=== PATIENT | female | born 1970 | race Caucasian/White ===

== ENCOUNTER 2023-06-20 14:59 | Outpatient (AMB) | payer BC, SELFPAY ==
--- NOTE | 2023-06-20 15:00 | A.OFFVIS_ITS ---
Intake Vital Signs 06/20/23 15:01 Height 5 ft 4 in Weight 117 lb 4 oz BMI 20.1 BP 114/78 Blood Pressure Location Rt brachial Position Sitting Intake Visit Reasons: NPV: Migraines-LVM Intake Note: Patient presents for migraines. patient states right now I have a good stretch, i get an ache in my ears and comes from the back of my neck with nausea. Allergies No Known Allergies Allergy (Verified 06/20/23 15:04) Medication List - Last Reconciled 06/20/23 by GERI Carpio biotin 5 mg PO DAILY fluticasone furoate 50 mcg/actuation inhalation galcanezumab-gnlm (Emgality) mg subcut levothyroxine (Levoxyl) 100 mcg PO DAILY loratadine (Allergy Relief (loratadine)) 10 mg PO DAILY ubrogepant (Ubrelvy) 100 mg PO DAILY HPI HPI Comments History of Present Illness Details 53-yr-old female presents for new pt nery luation of headache disorder. PMH and ROS: hypotyroidism, palpitation, sleep difficulties, back and neck pain. Pt reports that she has had headache for many years, which had been progressing in severity and duration but did not realize that she was having migraine until she had seen Dr Gannon (saw once prior to Dr reyes). She has been tracking her headaches and migraines since Aug 2022- and now believes she has a seasonal pattern to her migarine attacks- worse after Nov, better in the summer. Typical headache characteristics: Prodrome symptoms? None Aura? None Location, quality, characteristics? Starts with nick ear ache, then an aching pain moves up the back of her head and into her upper/lower teeth. Pain intensity? Intensity varies- mild-severe. Associated symptoms? Nausea, some photphobia, at times phonophobia, fatigue, Focal weakness, Parethesias, Autonomic s/s? None Postdrome? May feel drained Triggers? Alcohol- wine, stress. Any positional, valsalva, exertional, sexual activity triggers? Unsure- thought maybe there was some delayed headache after doing strength training. Menstrual triggers? Has an IUD- believes she is perimenopausal. Time of day? Varies Duration? In the past 3 days. Now Frequency? Has an almost daily low level headache, 4 migraine days per month (with taking Ubrelvy) during better migraine cycle, during worse cycle- 8 migraine days per month. How does headache impact your life? Tries not to miss work- may attend a meeting remotely. Current acute medication use/interventions: Ubrelvy 100mg- effective- tends to wait to take the ubrelvy (usually takes on 2nd day of migraine). Previous acute medication use: Sumatriptan- not tolerated- caused severe jaw pain. Current preventative medication use: None Previous preventative medication use: Mag- caused GI upset. Propranolol- ? ineffective. Previously received Emgality but never used it. Non-pharmacological interventions: Rest. Does not tolerate the cold. [facility] Medical History (Updated 06/21/23 @ 20:33 by GERI Carpio) Hypothyroidism Surgical History (Updated 06/20/23 @ 15:05 by JUAN Alvarenga) History of removal of skin mole [place] teeth removed Family History Mother Depression Thyroid disease Daughter Autism Social History Alcohol intake: current Patient Tobacco Use Status: Former Tobacco user Review of Systems Const Details: See scanned ROS form Physical Exam Vital Signs: Last Vital Signs BP 114/78 06/20/23 15:01 BMI result Body Mass Index 20.1 Const Orientation/consciousness: patient oriented x3 HEENT Other: No palpable scalp tenderness. Head: Yes normocephalic Resp Effort & Inspection: normal respiratory effort and able to speak in complete s entences Neuro General: patient oriented x3 Cranial nerves: Yes CN's II-XII intact bilaterally Cognition (Neuro): normal cognition Gait exam (Neuro): Normal gait present Motor exam (neuro): 5/5 motor strength present throughout Deep tendon reflexes (DTR's): Right triceps reflex intensity grade: 2+, Left triceps reflex intensity grade: 2+, Rt Biceps (C5, C6): 2+, Left biceps reflex intensity grade: 2+, Right brachioradialis reflex intensity grade: 2+, Left brachioradialis reflex intensity grade: 2+, Right patellar reflex intensity grade: 2+ and Left patellar reflex intensity grade: 2+ Coordination: [id number] test normal, tandem gait normal and Romberg test negative Pupils: Normal pupillary reactivity/response: bilateral Psych Appearance: grossly normal Mental Status: mental status grossly normal Speech and movement: Normal speech and movement present Affect: normal affect Attitude: cooperative Thought process: Normal thought process present Assessment & Plan Assessment & Plan (1) Migraine without aura: Code(s): G43.009 - Migraine without aura, not intractable, without status migrainosus (2) Sleep difficulties: Code(s): G47.9 - Sleep disorder, unspecified Plan For overall headache management: Discussed importance of good self-care, including but not limited to maintaining a healthy diet, adequate fluid intake, adequate sleep, and engaging in regular physical activity. For headache triggers: Track headaches, especially after any treatment regimen changes. Migraine [employer] is one of many headache tracking apps. For sleep: Pt may benefit from reading/listening to Say [place]ina to Insomnia by Dr Farooq Little or similar CBTi resources. For acute headache treatment: Discussed importance of taking acute medications at the first sign of headache. Continue Ubrelvy 100mg prn, MR ilda's 1 Previous acute migraine medication trials: Sumatriptan- severe jaw pain Acute migraine medication contraindications: Triptans d/t severe jaw pain reaction to sumatriptan. For headache prevention medication: Discussed that preventative medications should be taken routinely as prescribed for best effect, it may take several weeks for full effect to take effect. Start Riboflavin 400mg qam Start Magnesium 400mg qhs- may hold for loose stools. Or alternately she can try OTC Migralief. Previous migraine prevention medication trials: Propranolol- ineffective after > 12 weeks. Migraine prevention medication contraindications: Information also given on non-pharmacological interventions, such as Cefaly or Nerivio neuromodulation devices. Pt to follow-up in 3-4 months or sooner prn. Medications: New ubrogepant (Ubrelvy) take at onset of migraine, may repeat in 2hrs (may take w/ Ibuprofen) 50 - 100 mg (0.5 - 1 x 100 mg) PO ONCE 30 days PRN 10 tabs 3RF migraine headache Coding Level of Care Code New Pt Level 4 (29950) Diagnoses Migraine without aura G43.009 Sleep difficulties G47.9
[2023-06-20 15:01] VITALS: BP 114/78; BMI 20.1
== END 2023-06-20 16:13 | disposition home or self-care (01) ==
PROVIDERS: PCP Internal Medicine; Visit Provider Nurse Practitioner Family
DX: G43.009 Migraine without aura, not intractable, without status migrainosus (principal); G47.9 Sleep disorder, unspecified
CPT/HCPCS: 99204

== ENCOUNTER → 2023-06-20 14:59 | Outpatient (BNVA) | payer BC, SELFPAY | PROVIDERS: PCP Internal Medicine; Visit Provider Nurse Practitioner Family ==

== ENCOUNTER 2024-01-10 09:24 | Outpatient (AMB) | payer BC, SELFPAY ==
--- NOTE | 2024-01-10 09:48 | A.OFFVIS_ITS ---
Vital Signs 01/10/24 09:49 Height 5 ft 4 in Weight 115 lb BMI 19.7 BP 108/78 Blood Pressure Location Rt brachial Position Sitting Pulse 64 Pulse Source Pulse Oximeter Pulse Oximetry (%) 96 Oxygen Delivery Method Room Air Intake Visit Reasons: 4 mo f/u Migraines-LVM Intake Note: Patient presents for migraines. Patient states headaches are about the same no changess Allergies No Known Allergies Allergy (Verified 01/10/24 09:49) Medication List - Last Reconciled 01/10/24 by GERI Carpio biotin 5 mg PO DAILY fluticasone furoate 50 mcg/actuation inhalation galcanezumab-gnlm (Emgality) mg subcut levothyroxine (Levoxyl) 100 mcg PO DAILY loratadine (Allergy Relief (loratadine)) 10 mg PO DAILY ubrogepant (Ubrelvy) 50 - 100 mg (0.5 - 1 x 100 mg) PO ONCE PRN 30 days HPI Comments Details: 53-yr-old female presents for f/u visit. Pt denies any significant interval medical changes. Pt is having 3 breakthrough migraine days per month. Ubrelvy helps, trying to better at taking Ubrelvy at the 1st sign. She still has poor sleep- uses an OTC sleep aide, but prone to wake up at 3am and have difficulty going back to sleep. Tries to manage her triggers. Notes her headaches are usually worse in the winter. She uses Migrelief. Baseline headache characteristics: Intensity varies- mild-severe., Starts with nick ear ache, then an aching pain moves up the back of her head and into her upper/lower teeth a/w nausea, some photophobia, at times phonophobia, fatigue. [facility] Medical History (Updated 06/21/23 @ 20:33 by GERI Carpio) Hypothyroidism Surgical History (Updated 06/20/23 @ 15:05 by JUAN Alvarenga) History of removal of skin mole [place] teeth removed Family History Mother Depression Thyroid disease Daughter Autism Social History Alcohol intake: current Patient Tobacco Use Status: Former Tobacco user Physical Exam Vital Signs: Last Vital Signs Pulse 64 05/16/24 09:49 BP 108/78 01/10/24 09:49 Pulse Ox 96 01/10/24 09:49 Oxygen Delivery Method Room Air 01/10/24 09:49 BMI result Body Mass Index 19.7 Const General: cooperative and no acute distress Orientation/consciousness: patient oriented x3 Resp Effort & Inspection: normal respiratory effort and able to speak in complete sentences Neuro General: patient oriented x3 Cranial nerves: Yes CN's II-XII intact bilaterally Cognition (Neuro): normal cognition Psych Appearance: grossly normal Mental Status: mental status grossly normal Speech and movement: Normal speech and movement present Affect: normal affect Attitude: cooperative Assessment & Plan Assessment & Plan (1) Migraine without aura: Code(s): G43.009 - Migraine without aura, not intractable, without status migrainosus Category: Medical (2) Sleep difficulties: Code(s): G47.9 - Sleep disorder, unspecified Category: Medical Plan For overall headache management: Continue to optimize good self-care, including but not limited to maintaining a healthy diet, adequate fluid intake, adequate sleep, and engaging in regular physical activity. For headache triggers: Track headaches, especially after any treatment regimen changes. Migraine [employer] is one of many headache tracking apps. For sleep: Pt may benefit from reading/listening CBTi resources- information shared w/ pt ? For acute headache treatment: Discussed importance of taking acute medications at the first sign of headache. Continue Ubrelvy 100mg prn, MR ilda's 1 Previous acute migraine medication trials: Sumatriptan- severe jaw pain Acute migraine medication contraindications: Triptans d/t severe jaw pain reaction to sumatriptan. ? For headache prevention medication: Discussed that preventative medications should be taken routinely as prescribed for best effect, it may take several weeks for full effect to take effect. Continue OTC Migrelief 1-2 tabs per day. Previous migraine prevention medication trials: Propranolol- ineffective after > 12 weeks. Migraine prevention medication contraindications: None Future considerations: Trying Emgality or Qulipta over the winter. ? ? Pt to follow-up in 6 months or sooner prn. Medications: New B2-magnesium cit,oxid-feverfew 200-180-50 mg (MigreLief) PO .daily in am Coding Level of Care Code Est Pt Level 4 (20274) Diagnoses Migraine without aura G43.009 Sleep difficulties G47.9
[2024-01-10 09:49] VITALS: BP 108/78; PULSE 64; O2SAT 96; BMI 19.7
== END 2024-01-10 10:37 | disposition home or self-care (01) ==
PROVIDERS: PCP Internal Medicine; Visit Provider Nurse Practitioner Family
DX: G43.009 Migraine without aura, not intractable, without status migrainosus (principal); G47.9 Sleep disorder, unspecified
CPT/HCPCS: 99214

== ENCOUNTER → 2024-01-10 09:24 | Outpatient (BNVA) | payer BC, SELFPAY | PROVIDERS: PCP Internal Medicine; Visit Provider Nurse Practitioner Family ==

== ENCOUNTER 2024-12-30 15:21 | Outpatient (AMB) | payer OTHER, SELFPAY ==
[2024-12-30 15:38] VITALS: BP 100/60; PULSE 62; O2SAT 99; BMI 20.3
--- NOTE | 2024-12-30 15:38 | MHC.OFFVIS ---
Vital Signs 12/30/24 15:38 Height 5 ft 4 in Weight 118 lb BMI 20.3 BP 100/60 Blood Pressure Location Rt brachial Position Sitting Pulse 62 Pulse Source Pulse Oximeter Pulse Oximetry (%) 99 Oxygen Delivery Method Room Air Intake Visit Reasons: 7 month F/U Intake Note: Patient presents follow up for Migraines. [employer] Required: No Accompanied by: Self / Same As Patient Allergies No Known Allergies Allergy (Verified 01/10/24 09:49) Medication List - Last Reconciled 12/30/24 by GERI Carpio B2-magnesium cit,oxid-feverfew 200-180-50 mg (MigreLief) tabs PO .daily in am biotin 5 mg PO DAILY fluticasone furoate 50 mcg/actuation inhalation levothyroxine (Levoxyl) 100 mcg PO DAILY loratadine (Allergy Relief (loratadine)) 10 mg PO DAILY topiramate 25 - 50 mg (1 - 2 x 25 mg) PO BEDTIME 30 days ubrogepant (Ubrelvy) 50 - 100 mg (0.5 - 1 x 100 mg) PO ONCE PRN 30 days HPI Comments Details: 53-yr-old female presents for f/u visit. Pt denies any significant interval medical changes. Pt reports she has continued to have episodes of patches of migraine attacks that would come back to back. And the migraines do seem to be more associated with nausea, which is more bothersome than the headache pain itself. Also noticing a bilateral occipital region sensation-like something is connecting the back of 1 ear to the other-, as well as more lightheadedness/off-balance during migraine attack. Tries to monitor for triggers, notes that when she does weight training but not intense cardiac workout, we will have a migraine afterwards (but not during the workup). When asked, patient is unsure if she is being mindful to breathe during weight training exercises. So about a month ago, she decided to try Topiramate 25mg qhs. So far tolerating well. Ubrelvy is still effective- uses 1/2-1 tab at onset of migraine, typically using for tabs in total per month. She states she has not had a migraine in a week, however she has had nausea and decreased appetite daily x's the last 7-8 days. She notes the nausea is worse after eating a meal. She has noticed more hot flashes this week. Denies fever, loose stools, abd pain. Denies usual GERD or acid reflux. She tried Nerivio- did not enjoy it, though did try it regularly. Baseline headache characteristics: Intensity varies- mild-severe., Starts with nick ear ache, then an aching pain moves up the back of her head and into her upper/lower teeth a/w nausea, some photophobia, at times phonophobia, fatigue, . [facility] Medical History (Updated 12/30/24 @ 16:56 by GERI Carpio) Herpes simplex labialis PVCs (premature ventricular contractions) IBS (irritable bowel syndrome) Bilateral low back pain with left-sided sciatica Hypothyroidism Surgical History (Updated 06/20/23 @ 15:05 by JUAN Alvarenga) History of removal of skin mole [place] teeth removed Family History Mother Depression Thyroid disease Daughter Autism Social History Alcohol intake: current Patient Tobacco Use Status: Former Tobacco user Physical Exam Vital Signs: Last Vital Signs Pulse 62 12/30/24 15:38 BP 100/60 12/30/24 15:38 Pulse Ox 99 12/30/24 15:38 Oxygen Delivery Method Room Air 12/30/24 15:38 BMI result Body Mass Index 20.3 Const General: cooperative and no acute distress Orientation/consciousness: patient oriented x3 Resp Effort & Inspection: normal respiratory effort and able to speak in complete sentences Neuro General: patient oriented x3 Cranial nerves: Yes CN's II-XII intact bilaterally Cognition (Neuro): normal cognition Psych Appearance: grossly normal Mental Status: mental status grossly normal Speech and movement: Normal speech and movement present Affect: normal affect Attitude: cooperative Assessment & Plan Assessment & Plan (1) Migraine without aura: Code(s): G43.009 - Migraine without aura, not intractable, without status migrainosus Category: Medical Qualifiers: Status migrainosus presence: without status migrainosus Intractability: not intractable Qualified Code(s): G43.009 - Migraine without aura, not intractable, without status migrainosus (2) Sleep difficulties: Code(s): G47.9 - Sleep disorder, unspecified Category: Medical (3) Nausea: Code(s): R11.0 - Nausea Category: Medical (4) Anxiety: Code(s): F41.9 - Anxiety disorder, unspecified Category: Medical (5) Basal cell carcinoma: Code(s): C44.91 - Basal cell carcinoma of skin, unspecified Category: Medical Plan For new onset nausea: Maybe related to migraine, however we will check CBC and CMP for good measure. Symptoms worsen, follow-up with PCP. For overall headache management: Continue to optimize good self-care, including but not limited to maintaining a healthy diet, adequate fluid intake, adequate sleep, and engaging in regular physical activity. Track headaches, especially after any treatment regimen changes. Migraine [employer] is one of many headache tracking apps. Continue regular exercise. Advised to ensure she is consistently breathing during wake/strength training exercises. May consider doing yoga specifically care to migraine. Information shared by portal regarding nonpharmacological migraine treatment options. Future consideration: Head imaging ? For acute headache treatment: Discussed importance of taking acute medications at the first sign of headache. Continue Ubrelvy 100mg prn, MR x's 1 Previous acute migraine medication trials: Sumatriptan- severe jaw pain Acute migraine medication contraindications: Triptans d/t severe jaw pain reaction to sumatriptan. ? For headache prevention medication: Discussed that preventative medications should be taken routinely as prescribed for best effect, it may take several weeks for full effect to take effect. Continue OTC Migrelief 1-2 tabs per day. Continue topiramate 25 mg q.h.s.- if ineffective after another month, consider increasing dose to 50 mg q.h.s. or trialing alternate migraine preventive tx. Previous migraine prevention medication trials: Propranolol- ineffective after > 12 weeks. Migraine prevention medication contraindications: None Future considerations: Trying Emgality or Qulipta. Also could consider trial of verapamil if strength training induced migraine persists. ? ? Pt to follow-up in 6 months or sooner prn. Orders: Orders Complete Blood Count Auto Diff Today E03.9 - Hypothyroidism, unspecified, R11.0 - Nausea, R42 - Dizziness and giddiness Comprehensive Met. Panel Today E03.9 - Hypothyroidism, unspecified, R11.0 - Nausea, R42 - Dizziness and giddiness Medications: Changed From topiramate 25 - 50 mg (1 - 2 x 25 mg) PO BEDTIME 30 days 60 tabs 6RF To topiramate 25 mg PO BEDTIME 30 days 30 tabs 6RF Refilled ubrogepant (Ubrelvy) take at onset of migraine, may repeat in 2hrs (may take w/ Ibuprofen), Max 200mg per day 50 - 100 mg (0.5 - 1 x 100 mg) PO ONCE 30 days PRN 10 tabs 6RF migraine headache Coding Level of Care Code Est Pt Level 4 (98960) Diagnoses Migraine without aura and without status migrainosus, not intractable G43.009 Status migrainosus presence: without status migrainosus Intractability: not intractable Sleep difficulties G47.9 Nausea R11.0 Anxiety F41.9 Basal cell carcinoma C44.91
--- OUTSIDE RECORDS SUMMARY | 2024-12-30 16:32 | XMS_ITS | Patient Health Record ---
Author Organization [facility] Address [address] [place] [address] Care Team Providers Care Respooler Name Role Phone Darius Bull MD Primary Care Provider Unavail able Kasey Sexton Unavailable [phone] Allergies No Known Allergies Reason For Referral No Information Medications Medication SIG (Take, Route, Frequency, Duration) Notes Start Date End Date Status Levothyroxine Sodium 100 MCG 1 tablet in the morning on an empty stomach Orally Once a day for 30 day(s) Active Social History Tobacco Use: Social History Observation Description Date Details (start date - stop date) Never Smoker NA - NA Tobacco Use/Smoking Question Answer Notes Are you a: nonsmoker Additional Findings: Tobacco Non-User Aggressive non-smoker Alcohol Screen Question Answer Notes Did you have a drink contain ing alcohol in the past year? Yes How often did you have a dri nk containing alcohol in the past year? 4 or more times a week (4 points) How many drinks did you have on a typical day when you were drinking in the past year? 1 or 2 drinks (0 point) How often did you have 6 or more drinks on one occasion in the past year? Never (0 point) Points 4 Interpretation Positive Tobacco use other than smoking: Question Answer Notes Are you an other tobacco user? No Problems Problem Type SNOMED Code ICD Code Onset Dates Problem Status W/U Status Risk Notes Problem [id number] Osteoarthritis o f right ankle and foot (M19.071) Active confirmed Problem [id number] Osteoarthritis o f left ankle and foot (M19.072) Active confirmed Plan Of Treatment Pending Test Test Name Order Date X ray : Foot, left 3V 02/14/2021 X ray : Foot, right 3V 02/14/2021 Insurance Providers Payer Name Payer Address Payer Phone Subscriber Number Group Number Insured Name Patient Relationship to Insured Coverage Start Date Coverage End Date [employer]na [address] VINH Echevarria [phone] [id number] Jas Panda Spouse - patient is the spouse of the insured Medical (General) History Medical History History ICD Code Basal cell carcinoma thyroid Chicken pox Surgical History Surgery Date(Month/Year)
--- OUTSIDE RECORDS SUMMARY | 2024-12-30 16:32 | XMS_ITS | Clinical Summary ---
Author Organization [facility] & [facility] Address [address] [place] [address] Care Team Providers Care Box Spinner Name Role Phone Unavailable Primary Care Provider Unavailabl e Social History Tobacco Use Types Packs/Day Years Used Date Smoking Tobacco: Never Assessed Comments Unknown Sex and Gender Information Value Date Recorded Sex Assigned at Not on file Legal Sex Female 6:37 AM EST Gender Identity Not on file Sexual Orientation Not on file Plan of Treatment Health Maintenance Due Date Last Done Comments Colorectal Cancer: [place]ONOS[place] PY Screening every 10 yrs (or Modifier) 1971 Depression: Screening Annual ly using PHQ-2/9 in Adults 18 yrs or above (or HM Modifier)([facility]) 1971 Hepatitis C Virus Infection in Adolescents and Adults: Screening (or Modifier) ([facility]) 1989 [facility] Scre[facility] Reminder: Lillian rose for all adults ([facility]) 1989 Tobacco Smoking Cessation: i n Adults excluding Women: Behavioral and Pharmacotherapy Interventions ([facility]) 1989 Cervical Cancer Screenin 1-65 yrs of age (or Modifier) 1992 Cervical Cancer Screening: P ap every 3 yrs pts age 21-65 1992 Cervical Cancer: Pap Screeni ng with Modifier timing ([facility]) 1992 Cervical Cancer: hrHPV alone or with cotesting Pap for Pts 30-65yrs screening every 5yrs ([facility]) 1992 Colorectal Cancer Screening 45 -75 Yrs (or HM Modifier) 2016 Colorectal Cancer: FLEXIBLE SIGMOIDOSCOPY Screening every 5 yrs 2016 Colorectal Cancer: Fecal Imm unochemical Test (FIT) Annually [facility] [place] Colorectal Cancer: High-sens itivity gFOBT Screening Annually [facility] 2016 Colorectal Cancer: Stool Col oguard Screening every 3 yrs 2016 Colorectal Cancer:CT Colonog ivania Screening every 5 yrs 2016 Lipid Screening: Every 5 yrs for Women aged 45+ (or HM Modifier) ([facility]) 2017 Breast Cancer: Screening Lillian ually age 50-74 yrs (or HM Modifier)([facility] ) 2021 Pneumococcal Vaccination Scr eening: Patients 50+ yrs of age ([facility] ) (1 of 1 - PCV) 2021 Zoster/Shingles Vaccine Seri es Screening: Adults aged 18+ yrs (or HM Modifiers)([facility]) (1 of 2) 2021 COVID-19 Vaccine Screening: Initial Series and Booster Status ([facility]) ( - 2023- season) 2024 Flu Vaccination: Yearly for ages 18mos through 64 years (or Modifier)([facility]) 03/27/2025 DTaP/Tdap/Td Vaccines ([facility]) (2 - Td or Tdap) 9 12/17/2018 Medical Devices Not on file Insurance [employer]
== END 2024-12-30 16:37 | disposition home or self-care (01) ==
LOC: HO.HSMS 15:22
PROVIDERS: PCP Internal Medicine; Visit Provider Nurse Practitioner Family
DX: G43.009 Migraine without aura, not intractable, without status migrainosus (principal); G47.9 Sleep disorder, unspecified; R11.0 Nausea; F41.9 Anxiety disorder, unspecified; C44.91 Basal cell carcinoma of skin, unspecified
CPT/HCPCS: 99214

== ENCOUNTER 2025-07-01 15:22 | Outpatient (AMB) | payer OTHER, SELFPAY ==
--- OUTSIDE RECORDS SUMMARY | 2025-06-26 04:23 | XMS_ITS | Continuity of Care Document ---
Author Organization [facility] Address [address] [place] [address]- Care Team Providers Care Regional Sales Associate Name Role Phone Darius Bull MD Primary Care Physician Encounter [facility] [id number] Date(s): 06/25/25 - 06/26/[address] [address]- Discharge Disposition: A-D/C Home Attending Physician: Karin Hooper MD Admitting Physician: Karin Hooper MD Referring Physician: Not on Staff, Referring MD Encounter Type: Disch ES Allergies, Adverse Reactions, Alerts No Known Allergies Immunizations Given and Recorded Vaccine Date Status Refusal Reason influenza virus vaccine, inactivated 06/30/24 Arcenio rded influenza virus vaccine, inactivated 09/03/23 Arcenio rded influenza virus vaccine, inactivated 07/25/22 Arcenio rded influenza virus vaccine, inactivated 06/11/21 Arcenio rded SARS-CoV-2(COVID-19)mRNA-LNP vac([id number]) 06/30/24 Recorded [id number] bivalent booster vax 07/25/22 Recorded SARS-CoV-2 (COVID-19) mRNA BNT-162b2 vac 07/12/21 Recorded SARS-CoV-2 (COVID-19) mRNA BNT-162b2 vac 12/08/20 Recorded SARS-CoV-2 (COVID-19) mRNA BNT-162b2 vac 11/16/20 Recorded tetanus/diphtheria/pertussis, acel(Tdap) 12/17/18 Recorded tetanus-diphtheria toxoids (Td) 07/10/06 Recorded Medications Albuterol (Eqv-ProAir HFA) 90 mcg/inh inhalation aerosol 1 inhalation = 90 mcg, Inhalation, Every 4 hours, PRN as needed for shortness of breath or wheezing, # 8.5 Gm, 0 Refills, Maintenance, 01/07/25 9:12:00 AM EDT, Aerosol, [facility] #[id number], Partial fill upon patient request if the prescription is for a schedule II opioid drug., 1 inhalation Inhalation Every 4 hours,PRN:as needed for shortness of breath or wheezing, 161.9, cm, 01/07/25 8:41:00 EDT, Height, 52.6, kg, 01/07/25 8:41:00 EDT, Dry Weight Start Date: 01/07/25 Status: Ordered Medication Dispense Status: Completed Quantity: 8.5 Unit: g Total Allowed Fills: 1 Fills Dispensed: 0 Indications: Shortness of breath; barium sulfate 2% oral suspension See Instructions, For use for CT scan per radiology, # 900 mL, 0 Refills, Maintenance, 06/17/25 4:27:00 PM EDT, [facility] #[id number], Partial fill upon patient request if the prescription is for a schedule II opioid drug., For use for CT scan per radiology, 161.9, cm, 06/17/25 15:30:00 EDT, Height, 51.7, kg, 06/17/25 15:30:00 EDT, Dry Weight Start Date: 06/17/25 Status: Ordered Medication Dispense Status: Completed Quantity: 900.0 Unit: mL Total Allowed Fills: 1 Fills Dispensed: 0 Indications: Unspecified abdominal pain; bismuth subsalicylate 262 mg oral tablet 2 tablet = 524 mg, By Mouth, 4 times a day, for 14 days, # 112 tablet, 0 Refills, Acute 07/03/25 8:02:00 AM EST, 06/19/25 8:02:00 AM EDT, [facility] #[id number], Partial fill upon patient requestif the prescription is for a schedule II opioid drug., 161.9, cm, 06/17/25 15:30:00 EDT, Height, 51.7, kg, 06/17/25 15:30:00 EDT, Dry Weight Start Date: 06/19/25 Stop Date: 07/03/25 Status: Ordered Medication Dispense Status: Completed Quantity: 112.0 Unit: tablet Total Allowed Fills: 1 Fills Dispensed: 0 fluticasone 50 mcg/inh inhalation powder 3 Refill(s), 2 sprays to each nostril daily, 0 Refills, 01/31/22 12:35:00 PM EDT, Partial fill upon patient request if the prescription is for a schedule II opioid drug. Start Date: 01/31/22 Status: Ordered Medication Dispense Status: Completed Total Allowed Fills: 1 Fills Dispensed: 0 levothyroxine 0.088 mg oral tablet 1 tablet, By Mouth, Daily, # 90 tablet, 3 Refills, Maintenance, 01/07/25 9:19:00 AM EDT, [facility] #[id number], 161.9, cm, 01/07/25 8:41:00 EDT, Height, 52.6, kg, 01/07/25 8:41:00 EDT, Dry Weight Start Date: 01/07/25 Status: Ordered Medication Dispense Status: Completed Quantity: 90.0 Unit: tablet Total Allowed Fills: 4 Fills Dispensed: 0 Liletta 52 mg intrauteral device 1 each = 52 mg, Once, Inserted on 01/18/2016, 0 Refills, Maintenance, 02/22/18 2:01:20 PM EDT Start Date: 02/22/18 Status: Ordered Medication Dispense Status: Completed Total Allowed Fills: 1 Fills Dispensed: 0 loratadine 10 mg oral tablet 1, tablet, By Mouth, 2 times a day, PRN, # 180 tablet, Refills 3, Maintenance, NEEDED FOR SEVEREALLERGIES, 04/09/25 7:02:00 PM EDT, Route to Pharmacy Electronically, [facility] #[id number], 161.9, cm, 01/07/25 8:41:00 EDT, Height, 52.6, kg, 01/07/25 8:41:00 EDT, Dry Weight Start Date: 04/09/25 Status: Ordered Medication Dispense Status: Completed Quantity: 180.0 Unit: tablet Total Allowed Fills: 1 Fills Dispensed: 0 Lysine = 1,000 mg, By Mouth, Daily, 0 Refills, Maintenance, 04/30/13 3:39:10 PM EDT Start Date: 04/30/13 Status: Ordered Medication Dispense Status: Completed Total Allowed Fills: 1 Fills Dispensed: 0 magnesium citrate 133.3 mg oral capsule Oral, 1 Refill(s), Take by mouth., 0 Refills, 01/31/22 12:36:00 PM EDT, Partial fill upon patient request if the prescription is for a schedule II opioid drug. Start Date: 01/31/22 Status: Ordered Medication Dispense Status: Completed Total Allowed Fills: 1 Fills Dispensed: 0 Melatonin Daily at bedtime, 0 Refills, Maintenance, 02/22/18 2:01:11 PM EDT Start Date: 02/22/18 Status: Ordered Medication Dispense Status: Completed Total Allowed Fills: 1 Fills Dispensed: 0 metroNIDAZOLE 500 mg oral tablet 1 tablet = 500 mg, By Mouth, 4 times a day, for 14 days, # 56 tablet, 0 Refills, Acute 07/03/25 8:03:00 AM EST, 06/19/25 8:03:00 AM EDT, [facility] #[id number], Partial fill upon patient request if the prescription is for a schedule II opioid drug., 161.9, cm, 06/17/25 15:30:00 EDT, Height, 51.7, kg, 06/17/25 15:30:00 EDT, Dry Weight Start Date: 06/19/25 Stop Date: 07/03/25 Status: Ordered Medication Dispense Status: Completed Quantity: 56.0 Unit: tablet Total Allowed Fills: 1 Fills Dispensed: 0 omeprazole 20 mg oral enteric coated capsule 1 capsule = 20 mg, By Mouth, 2 times a day, # 30 capsule, 0 Refills, Maintenance, 06/17/25 4:29:00 PM EDT, [facility] #[id number], Partial fill upon patient request if the prescription is for a schedule II opioid drug., 161.9, cm, 06/17/25 15:30:00 EDT, Height, 51.7, kg, 06/17/25 15:30:00 EDT,Dry Weight Start Date: 06/17/25 Status: Ordered Medication Dispense Status: Completed Quantity: 30.0 Unit: capsule Total Allowed Fills: 1 Fills Dispensed: 0 ondansetron 4 mg oral tablet 1 tablet = 4 mg, By Mouth, Every 8 hours, PRN Nausea & Vomiting, # 20 tablet, 0 Refills, Maintenance, 06/22/25 12:51:00 PM EDT, Tablet, [facility] #[id number], Partial fill upon patient request if the prescription is for a schedule II opioid drug., 161.9, cm, 06/17/25 15:30:00 EDT, Height,51.7, kg, 06/17/25 15:30:00 EDT, Dry Weight Start Date: 06/22/25 Status: Ordered Medication Dispense Status: Completed Quantity: 20.0 Unit: tablet Total Allowed Fills: 1 Fills Dispensed: 0 tetracycline 500 mg oral tablet 1 tablet = 500 mg, By Mouth, 4 times a day, # 56 tablet, 0 Refills, Maintenance, 06/19/25 8:02:00 AM EDT, [facility] #[id number], Partial fill upon patient request if the prescription is for a schedule II opioid drug., 161.9, cm, 06/17/25 15:30:00 EDT, Height, 51.7, kg, 06/17/25 15:30:00 EDT, Dry Weight Start Date: 06/19/25 Stop Date: 07/03/25 Status: Ordered Medication Dispense Status: Completed Quantity: 56.0 Unit: tablet Total Allowed Fills: 1 Fills Dispensed: 0 topiramate 25 mg oral tablet 0 Refills, Maintenance, 01/03/25 10:38:00 PM EDT, Partial fill upon patient request if the prescription is for a schedule II opioid drug. Start Date: 01/03/25 Status: Ordered Medication Dispense Status: Completed Total Allowed Fills: 1 Fills Dispensed: 0 Ubrelvy 100 mg oral tablet TAKE 1 TABLET BY MOUTH ONCE NEEDED FOR MIGRAINE Start Date: 01/31/22 Status: Ordered Medication Dispense Status: Completed Total Allowed Fills: 1 Fills Dispensed: 0 valACYclovir 500 mg oral tablet See Instructions, TAKE 4 TABLETS BY MOUTH NEEDED, REPEAT ONCE 12 AFTER INITIAL DOSE, FOR TOTAL OF 8 TABS PER OUTBREAK, # 40 tablet, Refills 0, Maintenance, 08/14/24 4:46:00 PM EST, Instructions Replace Required Details, Route to Pharmacy Electronically, [facility] #[id number], 163, cm, 07/02/23 13:44:00 EST, Height Start Date: 08/14/24 Status: Ordered Medication Dispense Status: Completed Quantity: 40.0 Unit: tablet Total Allowed Fills: 1 Fills Dispensed: 0 Vitamin D3 2000 intl units oral capsule 1 capsule = 2,000 International_Units, By Mouth, Daily, 0 Refills, Maintenance, 05/28/14 1:55:58 PM EDT Start Date: 05/28/14 Status: Ordered Medication Dispense Status: Completed Total Allowed Fills: 1 Fills Dispensed: 0 Mental Status Mental Status Assessment Assessment Assessment Component Result Effecti ve Date Balaji coma score total 15 Problem List Condition Confirmation Course Effective Dates Status H ealth Status Informant Acquired hypothyroidism Confirmed 10/22/15 Active Anxiety Confirmed 12/10/15 Active Chronic back pain Confirmed 11/27/20 Active History of malignant basal cell neoplasm of skin; NE Derm Confirmed 10/22/15 Active H. 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 having heartburn worse than shes ever had before last 3 days. denies cardiac h x. pain midsternal non radiating no n v d no fevers scheduled to ct tomorrow epigastric discomfort worse tonight; Reason: Pain; epigastric pain (took Barium earlier this evening); Clinical Question(s): Other: TECHNIQUE: Spiral CT through the abdomen and pelvis with IV contrast formatted in 3 planes. 100 cc of Isovue 300 100cc vials was administered intravenously. This study was performed with oral contrast. Weight-based protocol using automatic tube modulation was used to optimize exposure parameters. CTDIvol Body: 8.01 mGy, DLP Body: 383 mGy*cm. COMPARISON: None. FINDINGS: Grip View Findings, Lines and Tubes: None. Visualized Chest: Lung bases are clear. No pleural effusion. The heart is normal in size. No pericardial effusion. Diaphragm: Normal. Liver: Subcentimeter hypodensity right lobe of the liver, 2 small to cheracterize. Gallbladder and biliary duets: Gallbladder is mildly distended. No radiopaque stones, wall thickening or pericholecystic fluid. No biliary ductal dilatation. Pancreas: Normal. No ductal dilation. Spleen: Normal No splenomegaly. Adrenal glands: Normal, No mass Kidneys and ureters: Normal. No hydronephrosis Stomach and bowel: No bowel obstruction or gross focal area of wall thickening appreciated. Moderate amount of stool in the colon Appendix:: Normal caliber appendix without surrounding inflammatory stranding. Intraperitoneal space: Unremarkable. No free air. No significant fluid collection. Vasculature: Unremarkable No abdominal aortic aneurysm Lymph nodes: Unremarkable. No enlarged lymph nodes. Urinary bladder: Unremarkable. Reproductive: No acute abnormality. Intrauterine device in expected location. Bones. Unremarkable. No acute fracture. Soft tissues: Unremarkable. IMPRESSION: No acute intra-abdominal abnormality. Additonal findings as above WSN: [id number] Ordering Physician: Karin Hooper Dictated By: Gustavo Lopez MD Dictated Date/Time: 06/26/25 9:53 am Reviewed By: Gustavo Lopez MD Signed By: Gustavo Lopez MD Signed Date/Time: 06/26/25 9:53 am Transcribed By: ZOLTAN Transcribed Date/Time: 06/26/25 9:47 am Vital Signs Most recent to oldest [Reference Range]: 1 2 3 Height 163 cm (06/26/25 5:19 AM) 163 cm (06/26/25 12:26 AM) 163 cm (06/25/25 10:07 PM) Weight 52.2 kg (06/26/25 5:19 AM) 52.2 kg (06/26/25 12:26 AM) 52.2 kg (06/25/25 10:07 PM) Oxygen Saturation [94-100 %] 97 % (06/26/25:19 AM) 100 % (06/25/25 10:07 PM) 100 % (06/25/25 10:06 PM) Pulse Rate [55-90 bpm] 64 bpm (06/26/25:19 AM) 54 bpm *L* (06/26/25: AM) 69 bpm (06/25/25 10: PM) Body Mass Index [18.5-24.99 kg/m2] 19.65 kg/m2 (06/26/25 AM) Blood Pressure [90-138/55-84 mm Hg] 114/76mm Hg (06/26/25: AM) 130/70mm Hg (06/26/25 AM) 134/82mm Hg (06/25/25: PM) Respiratory Rate [16-30 br/min] 12 br/min *L* (06/26/25 AM) 16 br/min (06/26/25 AM) 16 br/min (06/25/25: PM) Temperature [96.8-100.4 DegF] 97.6 DegF (06/26/25: AM) 97.7 DegF (06/26/25: AM) 97.7 DegF (06/25/25: PM) Mode of Delivery (Oxygen) Room air (06/26/25: AM) Room air (06/26/25: AM) Room air (06/25/25: PM) Blood pressure sites Arm, left (06/26/25: AM) Arm, left (06/26/25: AM) Arm, right (06/25/25: PM) Temperature Route Oral (06/26/25: AM) Oral (06/26/25: AM) Oral (06/25/25 10:07 PM) Dry Weight 52.2 kg (06/26/25:19 AM) 52.2 kg (06/26/25 12:26 AM) 52.2 kg (06/25/25 10:07 PM) Weight Obtained Via Standing scale (06/25/25 10:07 PM) Dry Weight Obtained Via Standing scale (06/25/25 10:07 PM) EKG study * Event Display: EKG Authored Date: * Event Display: ECG 12-Lead Authored Date: Please click on pdf link to open report * Event Display: ECG 12-Lead Authored Date: Ventricular Rate: 66 BPM Atrial Rate: 66 BPM P-R Interval: 158 ms QRS Duration: 84 ms Q-T Interval: 418 ms QTC Calculation(Bazett): 438 ms P [place]: 76 degrees R [place]: 79 degrees T [place]: 70 degrees Normal sinus rhythm Possible Left atrial enlargement Borderline ECG When compared with ECG of 06-Dec-2022 09:16, No significant change was found Confirmed by BLANCA OGLSEBY MD ([id number]) on 06/26/2025 10:28:49 PM [place]: BLANCA OGLESBY MD Note * Karin Hooper MD: PERFORM Event Display: Patient Education Leaflets Authored Date: Understanding Gastritis ?? [id number] Understanding Gastritis Gastritis is a painful inflammation of the stomach lining. It has a number of causes. Treatment canease the symptoms. The stomach To digest the food you eat, your stomach makes strong acids and enzymes. These don't harm the lining of a healthy stomach. But acids may irritate the lining when the stomach doesn't work as it should. That's called gastritis. ?? Causes of gastritis This problem has many causes. They may include: ??? Aspirin and other pain medicines called NSAIDs.??? Tobacco use. ??? Alcohol use. ??? H. pylori bacteria. ??? Trauma from injuries, berger, or majorsurgery. ??? Cocaine use. ??? Radiation. ??? Serious illness or autoimmune disorders. ?? Common symptoms Symptoms may include: ??? A burning feeling in your upper belly. ??? Pain after eating certain foods. ??? Gas or a bloated feeling. ??? Frequent belching. ??? Nausea with or without vomiting. ??? Loss of appetite. ??? Feeling full quickly. ??? Blood in vomit. ??? Stools that look black and tarry. ??? Paleness. ??? Tiredness (fatigue). ?? Last Reviewed Date: 2024 00:00:00 ?? [id number] [employer]. All rights reserved. This information is not intended as a substitute for professional medical care. Always follow your healthcare professional's instructions. ?? Patient Care team information Care Team Personnel Name: Darius Bull MD Position: S Physician - Primary Care Member Role: PCP Address: [address] [place] [address] Telecom: Care Team Related Persons Name: TAMARA ALMODOVAR Name: MARIA GUADALUPE KELLEY Insurance Providers Guarantor name: CALLY ALMODOVAR Health Plan Information #: 1 Payer: [employer] Payer Identifier: [place]IS[place] Member Number: [id number] Group Number: [id number] Subscriber Identifier: [id number] Relationship to Subscriber: self Coverage Type: Commercial Managed Care - HMO Coverage Verification Date: Telecom: NA Address:
[2025-07-01 15:36] VITALS: BP 100/74; PULSE 75; O2SAT 100; BMI 19.4
--- NOTE | 2025-07-01 15:36 | A.OFFVIS_ITS ---
Vital Signs 07/01/25 15:36 Height 5 ft 4 in Weight 113 lb BMI 19.4 BP 100/74 Blood Pressure Location Lt brachial Position Sitting Pulse 75 Pulse Source Pulse Oximeter Pulse Oximetry (%) 100 Oxygen Delivery Method Room Air Intake Visit Reasons: 6mon follow-up Intake Note: Patient presents follow up for Migraines. 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 Accompanied by: Self / Same As Patient Allergies No Known Allergies Allergy (Verified 07/01/25 15:41) Medication List - Last Reconciled 07/01/25 by GERI Carpio B2-magnesium cit,oxid-feverfew 200-180-50 mg (MigreLief) tabs PO .daily in am cholecalciferol (vitamin D3) PO fluticasone furoate 50 mcg/actuation inhalation levothyroxine (Levoxyl) 88 mcg PO DAILY loratadine (Allergy Relief (loratadine)) 10 mg PO DAILY magnesium glycinate PO topiramate 25 mg PO BEDTIME 30 days ubrogepant (Ubrelvy) 50 - 100 mg (0.5 - 1 x 100 mg) PO ONCE PRN 30 days HPI Comments Details: 53-yr-old female presents for f/u visit for migraine. She would like to address the recent H pylori diagnosis and sleep concerns. Interval History: Recently diagnosed and tx'd for H. Pylori, as she was experiencing epigastric burning sensation and back discomfort for a few months. Initially, she perceived this as migraine, as it often felt like the start of her typical migraine, and at times it responded to her as-needed Ubrelvy. She is curious why it seems the Ubrelvy might for been helpful for this She notes she did not tolerate the H. Pylori treatment (completed 10 days of the 14 day course of metronidazole, tetracycline, omeprazole, bismuth subsa licylate). She states it made her feel very ill and she had increased GI burning pain. Thus, she went to [facility] ER, where workup including abdominal CT was unremarkable. Since, she has had less headache symptoms, but she continues to have epigastric burning. She plans to follow-up with PCP and family she is being referred to outpatient GI. She is taking omeprazole at times. Since, she feels that the migraines are starting more in her head and moving down the body. She continues to tolerate topiramate 25 mg well. She is taking OTC magnesium glycinate. Ubrelvy is still effective- uses 1/2-1 tab at onset of migraine. She previously tried Nerivio- did not enjoy it, though did try it regularly. * Baseline headache characteristics: * Intensity varies- mild-severe., Starts with nick ear ache, then an aching pain moves up the back of her head and into her upper/lower teeth a/w nausea, some photophobia, at times phonophobia, fatigue. She also expresses that she is having difficulty maintaining sleep. She goes to sleep around 9:30 pm and wakes up for the day around 5 am. However, she is prone to waking up between 2-3 a.m., and is having difficulty falling back asleep. So she is now relying on a sleep aid, which helps her sleep another 2 hours and wake up feeling more refreshed. However, she is concerned about the long-term effects of this, as she notes her mother is dependent on zolpidem to sleep. She states that historically, if she woke up at 3 am, she would just stay awake and start her day, but then she was exhausted throughout the day. She has tried reading ?hello sleep? without much help [facility] Medical History (Updated 12/30/24 @ 16:56 by GERI Carpio) Herpes simplex labialis PVCs (premature ventricular contractions) IBS (irritable bowel syndrome) Bilateral low back pain with left-sided sciatica Hypothyroidism Surgical History (Updated 06/20/23 @ 15:05 by JUAN Alvarenga) History of removal of skin mole Lyons teeth removed Family History Mother Depression Thyroid disease Daughter Autism Social History Alcohol intake: current Patient Tobacco Use Status: Former Tobacco user Physical Exam Vital Signs: Last Vital Signs Pulse 75 07/01/25 15:36 BP 100/74 07/01/25 15:36 Pulse Ox 100 07/01/25 15:36 Oxygen Delivery Method Room Air 07/01/25 15:36 BMI result Body Mass Index 19.4 Const General: cooperative and no acute distress Orientation/consciousness: patient oriented x3 Resp Effort & Inspection: normal respiratory effort and able to speak in complete sentences Neuro General: patient oriented x3 Cranial nerves: Yes CN's II-XII intact bilaterally Cognition (Neuro): normal cognition Psych Appearance: grossly normal Mental Status: mental status grossly normal Speech and movement: Normal speech and movement present Affect: normal affect Attitude: cooperative Assessment & Plan Assessment & Plan (1) Migraine without aura: Code(s): G43.009 - Migraine without aura, not intractable, without status migrainosus Category: Medical Qualifiers: Status migrainosus presence: without status migrainosus Intractability: not intractable Qualified Code(s): G43.009 - Migraine without aura, not intractable, without status migrainosus (2) Sleep difficulties: Code(s): G47.9 - Sleep disorder, unspecified Category: Medical (3) Nausea: Code(s): R11.0 - Nausea Category: Medical (4) Anxiety: Code(s): F41.9 - Anxiety disorder, unspecified Category: Medical Plan Discussed that the Ubrelvy may have been helpful for GI symptoms not obviously associated with migraine headache, as it is possible to have migraine without headache. However, Ubrelvy is a CGRP antagonist, and there are CGRP receptors within the GI tract. As CGRP please a critical role in pain, vasodilation and inflammation, it is possible that Ubrelvy may have inhibited GI CGRP expression, and thus alleviated non migrainous abdominal symptoms. Follow-up with PCP and establish care with GI when able. In the meantime, she may try OTC Pepcid complete 1-2 tabs chewed with a full glass of water for acute treatment of epigastric burning. For overall headache management: Continue to optimize good self-care, including but not limited to maintaining a healthy diet, adequate fluid intake, adequate sleep, and engaging in regular physical activity. Track headaches, especially after any treatment regimen changes. Migraine [employer] is one of many headache tracking apps. Continue regular exercise. Advised to ensure she is consistently breathing during wake/strength training exercises. May consider doing yoga specifically care to migraine. Information previously shared by portal regarding nonpharmacological migraine treatment options. For sleep: * Encouraged patient to read and do the homework in ?say good night to insomnia by Dr. Fraooq Little and to listen to the weekly sleep education podcast, the sleep unplugged podcast by Dr. Francisco Mai * For now, she may continue OTC sleep aid as needed ? For acute headache treatment: Discussed importance of taking acute medications at the first sign of headache. Continue Ubrogepant 1/2 - 1 tab (50-100mg) at onset of headache. * You may repeat the dose in 2 hours. Max of 2 tabs (200mg) per 24 hours. * You may take Ubrogepant with OTC Tylenol 650-1000 mg every 4-6 hours as needed Previous acute migraine medication trials: Sumatriptan- severe jaw pain Acute migraine medication contraindications: Triptans d/t severe jaw pain reaction to sumatriptan. ? For headache prevention medication: Discussed that preventative medications should be taken routinely as prescribed for best effect, it may take several weeks for full effect to take effect. Continue OTC Migrelief 1-2 tabs per day. Continue topiramate 25 mg daily at bedtime Previous migraine prevention medication trials: Propranolol- ineffective after > 12 weeks. Migraine prevention medication contraindications: None Future considerations: Trying Emgality or Qulipta. Also could consider trial of verapamil if strength training induced migraine persists. ? ? Pt to follow-up in 6 months or sooner prn. Medications: Refilled ubrogepant (Ubrelvy) take at onset of migraine, may repeat in 2hrs (may take w/ Ibuprofen), Max 200mg per day 50 - 100 mg (0.5 - 1 x 100 mg) PO ONCE PRN 10 tabs 6RF migraine headache 30 days topiramate 25 mg PO BEDTIME 30 tabs 6RF 30 days Coding Level of Care Code Est Pt Level 4 (79302) Diagnoses Migraine without aura and without status migrainosus, not intractable G43.009 Status migrainosus presence: without status migrainosus Intractability: not intractable Sleep difficulties G47.9 Nausea R11.0 Anxiety F41.9
--- OUTSIDE RECORDS SUMMARY | 2025-07-01 18:19 | XMS_ITS | Patient Health Record ---
Author Organization [facility] Address [address] [place] [address] Care Team Providers Care Adult Probation Officer Name Role Phone Darius Bull MD Primary Care Provider Unavail able Kasey Sexton Unavailable [phone] Allergies No Known Allergies Reason For Referral No Information Medications Medication SIG (Take, Route, Frequency, Duration) Notes Start Date End Date Status Levothyroxine Sodium 100 MCG 1 tablet in the morning on an empty stomach Orally Once a day; Duration: 30 day(s) Active Social History Tobacco Use: [...] Problem Status W/U Status Risk Notes Problem Localized, primary osteoarthritis of the ankle and/or foot (649276086) Osteoarthritis of right ankle and foot (M19.071) Active confirmed Problem Localized, primary osteoarthritis of the ankle and/or foot (729856985) Osteoarthritis of left ankle and foot (M19.072) Active confirmed Plan Of Treatment Pending Test Test Name Order Date X ray : Foot, left 3V 02/14/2021 X ray : Foot, right 3V 02/14/2021 Insurance Providers Payer Name Payer Address Payer Phone Subscriber Number Group Number Insured Name Patient Relationship to Insured Coverage Start Date Coverage End Date [employer] [address] [place] [address] [id number] Jas Panda Spouse - patient is the spouse of the insured Medical (General) History Medical History History ICD Code Basal cell carcinoma thyroid Chicken pox Surgical History Surgery Date(Month/Year)
--- OUTSIDE RECORDS SUMMARY | 2025-07-01 18:19 | XMS_ITS | Clinical Summary ---
Author Organization [facility] Address [address] [place] [address] Care Team Providers Care Can Repairer Name Role Phone Unavailable Primary Care Provider Unavailabl e Social History Tobacco Use Types Packs/Day Years Used Date Smoking Tobacco: Never Assessed Comments Unknown Sex and Gender Information Value Date Recorded Sex Assigned at Not on file Legal Sex Female 6:37 AM EST Gender Identity Not on file Sexual Orientation Not on file Plan of Treatment Not on file Medical Devices Not on file Insurance [place] [address] [employer]
== END 2025-07-01 18:31 | disposition home or self-care (01) ==
LOC: HO.HSMS 15:23
PROVIDERS: PCP Internal Medicine; Visit Provider Nurse Practitioner Family
DX: G43.009 Migraine without aura, not intractable, without status migrainosus (principal); G47.9 Sleep disorder, unspecified; R11.0 Nausea; F41.9 Anxiety disorder, unspecified
CPT/HCPCS: 99214